=== PATIENT | male | born 1940 | race Caucasian/White ===

== ENCOUNTER 2019-03-20 08:28 | Inpatient (IN) ==
[~2019-03-20 08:28] MED LIST: ACETAMINOPHEN 500 MG TABLET PO ONE; CELECOXIB 200 MG CAPSULE PO ONE; Gabapentin 600 MG TABLET PO ONE; LIDOCAINE W/ SODIUM BICARB 0.5 ML SYR ONE; LIDOCAINE W/ SODIUM BICARB 0.5 ML SYR SUBD ONE; Lactated Ringers 1,000 ML PRIMARY IV ONE; Nasal Sanitizer POPSWAB ampule 3 AMP (Nozin) PREOP DOSE ENOS SCH; PANTOPRAZOLE 20 MG TABLET.DR PO ONE; ceFAZolin Inj 2gm (Premix) 2 GM/50 ML BAG IV ONE
[2019-03-20 09:21] LABS: BILIRUBIN,URINE NEGATIVE (NEG); CLARITY,URINE CLEAR (CLEAR); COLOR,URINE YELLOW (Y); GLUCOSE, URINE (UA) NEGATIVE (NEG); PROTEIN,URINE NEGATIVE (NEG); UROBILINOGEN,URINE 0.2 EU/dL (0.2)
[2019-03-20 09:26] LABS: OCCULT BLOOD,URINE TRACE (NEG)
[2019-03-20 09:27] LABS: URINE SAMPLE TYPE CLEAN CATCH URINE
[2019-03-20] MEDS: Lactated Ringers 1,000 ML PRIMARY IV SCH ×2 (09:42→16:26)
[2019-03-20] MEDS ORDERED: MIDAZOLAM 5 MG/1 ML ONE (10:36)
[2019-03-20] MEDS ORDERED: PROPOFOL 10 MG/1 ML (200 MG/20 ML) VIAL IV ONE (10:36)
[2019-03-20] MEDS ORDERED: LIDOCAINE MPF 2% - 5 ML (20 MG/1 ML) ONE (10:37)
[2019-03-20] MEDS ORDERED: fentaNYL Inj 250 MCG/5 ML VIAL ONE ×2 (10:37→12:02)
[2019-03-20] MEDS ORDERED: BUPivacaine Liposome/PF (Exparel) Inj 20ml vial INFIL ONE ×2 (10:38→10:43)
[2019-03-20] MEDS ORDERED: Sodium Chloride 0.9% vial 40 ML ONE (10:38)
[2019-03-20] MEDS ORDERED: BACITRACIN 50,000 UNIT VIAL IRRIG ONE (10:38)
[2019-03-20] MEDS ORDERED: BUPivacaine Inj 0.5% PF (5mg/ml) 10ml vial ONE (10:43)
[2019-03-20] MEDS ORDERED: Ketorolac Inj 30 MG, Morphine Inj (Ortho Cocktail) 4 MG, BUPivacaine Inj 0.25% PF 150 MG SPLASH ONE ×3 (11:00)
[2019-03-20] MEDS ORDERED: TRANEXAMIC ACID 1,000 MG / 10 ML VIAL ONE ×2 (11:36→12:54)
[2019-03-20] MEDS ORDERED: Lactated Ringers 1,000 ML PRIMARY IV ONE (11:50)
[2019-03-20] MEDS ORDERED: ONDANSETRON 4 MG/2 ML VIAL IVP PRN ×2 (11:58→14:50)
[2019-03-20] MEDS ORDERED: HYDROmorphone 2 MG/1 ML IVP PRN (11:58)
[2019-03-20] MEDS ORDERED: LIDOCAINE W/ SODIUM BICARB 0.5 ML SYR SUBD PRN (11:58)
[2019-03-20 14:12] LABS: Hematocrit [HCT] 41.3 % (42.0-52.0); Hemoglobin [HGB] 13.9 g/dL (14.0-18.0)
[2019-03-20] MEDS ORDERED: MAG HYDROX/AL HYDROX/SIMETH 30 ML SUSP PO PRN (14:50)
[2019-03-20] MEDS ORDERED: BISACODYL 5 MG TABLET PO PRN (14:50)
[2019-03-20] MEDS ORDERED: CALCIUM CARBONATE 500 MG (TUMS) CHEWABLE TABLET PO PRN (14:50)
[2019-03-20] MEDS ORDERED: LIDOCAINE HCL 2 % 10 ML JELLY URO-JECT TOPICAL PRN (14:50)
[2019-03-20] MEDS ORDERED: diphenhydrAMINE 25 MG CAPSULE PO PRN (14:50)
[2019-03-20] MEDS: ceFAZolin Inj 2gm (Premix) 2 GM/50 ML BAG IV SCH (21:00)
[2019-03-20] MEDS: DOCUSATE 100 MG CAPSULE PO SCH (21:21)
[2019-03-20] MEDS: HYDROcodone-APAP 7.5 MG-325 MG TABLET PO PRN (21:21)
[2019-03-21] MEDS: Lactated Ringers 1,000 ML PRIMARY IV SCH ×2 (02:10→10:22)
[2019-03-21] MEDS: ceFAZolin Inj 2gm (Premix) 2 GM/50 ML BAG IV SCH (03:04)
[2019-03-21 06:00] LABS: BLOOD UREA NITROGEN 15 mg/dL (7-22)
[2019-03-21 06:35] LABS: RED BLOOD COUNT 4.18 10^6/uL (4.70-6.10)
[2019-03-21 06:36] LABS: Hematocrit [HCT] 37.5 % (42.0-52.0); Hemoglobin [HGB] 12.6 g/dL (14.0-18.0); MEAN CORPUSCULAR HGB CONC 33.6 g/dL (33-37); MEAN CORPUSCULAR VOLUME 89.7 FL (80-90); MEAN PLATELET VOLUME 10.4 FL (7.4-12.2)
[2019-03-21] MEDS: HYDROcodone-APAP 7.5 MG-325 MG TABLET PO PRN ×5 (07:33→23:40)
[2019-03-21] MEDS: Multivitamin Tab 1 TAB PO SCH (08:06)
[2019-03-21] MEDS: ENOXAPARIN SODIUM 30 MG/0.3 ML SYRINGE SUBCUT SCH ×2 (08:06→20:45)
[2019-03-21] MEDS: DOCUSATE 100 MG CAPSULE PO SCH ×2 (08:06→20:45)
[2019-03-21] MEDS: OMEPRAZOLE 20 MG CAPSULE PO SCH (08:06)
[2019-03-21] MEDS: CYCLOBENZAPRINE 10 MG TABLET PO PRN (10:21)
[2019-03-22] MEDS: HYDROcodone-APAP 7.5 MG-325 MG TABLET PO PRN ×6 (04:05→20:36)
[2019-03-22 05:20] LABS: Hematocrit [HCT] 36.8 % (42.0-52.0); Hemoglobin [HGB] 12.5 g/dL (14.0-18.0); MEAN CORPUSCULAR VOLUME 88.7 FL (80-90); MEAN PLATELET VOLUME 10.5 FL (7.4-12.2); RED BLOOD COUNT 4.15 10^6/uL (4.70-6.10)
[2019-03-22 05:47] LABS: BLOOD UREA NITROGEN 13 mg/dL (7-22); BUN/CREATININE RATIO 14.44 (6-20)
[2019-03-22] MEDS: OMEPRAZOLE 20 MG CAPSULE PO SCH (08:23)
[2019-03-22] MEDS: Multivitamin Tab 1 TAB PO SCH (08:24)
[2019-03-22] MEDS: DOCUSATE 100 MG CAPSULE PO SCH ×2 (08:24→20:33)
[2019-03-22] MEDS: ENOXAPARIN SODIUM 30 MG/0.3 ML SYRINGE SUBCUT SCH ×2 (08:25→20:32)
[2019-03-22] MEDS: Lactated Ringers 1,000 ML PRIMARY IV SCH (10:41)
[2019-03-22] MEDS: CYCLOBENZAPRINE 10 MG TABLET PO PRN ×2 (11:48→20:33)
[2019-03-22] MEDS ORDERED: DIAZEPAM 10 MG/2 ML (5 MG/1 ML) CARPUJECT IVP PRN (13:58)
[2019-03-23] MEDS: HYDROcodone-APAP 7.5 MG-325 MG TABLET PO PRN ×3 (04:09→14:31)
[2019-03-23 05:31] LABS: Hematocrit [HCT] 36.1 % (42.0-52.0); Hemoglobin [HGB] 12.1 g/dL (14.0-18.0); MEAN CORPUSCULAR HGB CONC 33.5 g/dL (33-37); MEAN CORPUSCULAR VOLUME 89.4 FL (80-90); MEAN PLATELET VOLUME 10.4 FL (7.4-12.2); RED BLOOD COUNT 4.04 10^6/uL (4.70-6.10)
[2019-03-23 05:47] LABS: BLOOD UREA NITROGEN 13 mg/dL (7-22); BUN/CREATININE RATIO 14.44 (6-20)
[2019-03-23] MEDS: ENOXAPARIN SODIUM 30 MG/0.3 ML SYRINGE SUBCUT SCH (08:13)
[2019-03-23] MEDS: OMEPRAZOLE 20 MG CAPSULE PO SCH (08:14)
[2019-03-23] MEDS: Multivitamin Tab 1 TAB PO SCH (08:14)
[2019-03-23] MEDS: DOCUSATE 100 MG CAPSULE PO SCH (08:14)
[2019-03-23] MEDS: CYCLOBENZAPRINE 10 MG TABLET PO PRN ×2 (08:19→16:26)
[2019-03-23 11:46] VITALS: RESP 16
[2019-03-23] MEDS ORDERED: FUROSEMIDE 10 MG/1 ML - 4 ML IVP ONE ×2 (14:52→14:57)
[2019-03-23 16:09] VITALS: BP 125/81; TEMP 98.2; O2SAT 98
== END 2019-03-23 17:02 | disposition home or self-care (01) | DRG 470 ==
LOC: OPS 08:28 → MED/SURG 14:33
PROVIDERS: ADMIT Orthopaedic Surgery; ATTEND Orthopaedic Surgery